=== PATIENT | male | born 1980 | race Caucasian/White ===

== ENCOUNTER → 2016-12-14 | Outpatient (CLI) | payer OTHER ==
--- NOTE | 2016-12-14 12:26 | XR ---
EXAMINATION TYPE: XR knee complete LT DATE OF EXAM: 12/14/2016 11:59 AM COMPARISON: NONE HISTORY: 35-year-old male hyperextension injury, unable to straighten, knee sprain. TECHNIQUE: 3 views FINDINGS: There are postoperative changes of ACL graft reconstruction. The lateral distal femoral Endobutton is appropriately situated and both the femoral and tibial tunnels appear within normal limits. Extensor mechanism is intact. However, there is at least a moderate underlying knee joint effusion. No acute fracture, subluxation, or dislocation. IMPRESSION: ACL graft reconstruction. No acute osseous abnormality seen. However, there is at least a moderate kn ee joint effusion. If concern for internal derangement, MRI can further evaluate.
== END | disposition home or self-care (01) ==
LOC: RADXRMAIN 11:42
PROVIDERS: ATTEND Emergency Medicine
DX: M25.462 Effusion, left knee (principal); Z98.890 Other specified postprocedural states

== ENCOUNTER → 2017-01-13 | Outpatient (CLI) | payer MEDICAID, OTHER ==
[2017-01-13 16:27] LABS: Partial Thromboplastin Time 26.2 sec (22.0-30.0); Prothrombin Time 10.2 sec (9.0-12.0)
[2017-01-13 16:31] LABS: Potassium 4.6 mmol/L (3.5-5.1)
[2017-01-13 16:38] LABS: Basophils % (A) 1 %; CH 33.4; CHCM 33.8; Eosinophils # (A) 0.3 k/uL (0-0.7); Eosinophils % (A) 5 %; HCT 43.6 % (39.0-53.0); HDW 2.36; HGB 14.4 gm/dL (13.0-17.5); Luc # (Auto) 0.13; Luc % (Auto) 2; Lymphocytes # (A) 1.8 k/uL (1.0-4.8); Lymphocytes % (A) 32 %; MCH 32.7 pg (25.0-35.0); MCHC 32.9 g/dL (31.0-37.0); MCV 99.3 fL (80.0-100.0); Mean Platelet Volume 6.5; Monocytes # (A) 0.2 k/uL (0-1.0); Monocytes % (A) 4 %; Neutrophils # (A) 3.1 k/uL (1.3-7.7); Neutrophils % (A) 56 %; RBC 4.39 m/uL (4.30-5.90); RDW 12.5 % (11.5-15.5); WBC 5.6 k/uL (3.8-10.6); WBC (Perox) 5.65
== END ==
LOC: LABPAT 15:07
PROVIDERS: ATTEND Orthopaedic Surgery
DX: Z01.812 Encounter for preprocedural laboratory examination (principal); M23.92 Unspecified internal derangement of left knee
CPT/HCPCS: 36415; 80051; 85025; 85610; 85730

== ENCOUNTER 2017-01-20 06:57 | Day surgery (SDC) | payer OTHER ==
[2017-01-18 17:07] VITALS: BMI 23.7
--- NOTE | 2017-01-19 15:07 | HP ---
DATE OF ADMISSION: CHIEF COMPLAINT: Left knee pain. 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 He stepped back off a rack and hyperextended his knee. He has had pain, swelling, and giving way since. Currently, he is partial weight-bearing with crutches. He has a history of a previous ACL reconstruction in 2011. PAST MEDICAL HISTORY: Negative. PAST SURGICAL HISTORY: Significant for previous left knee arthroscopy with ACL reconstruction. CURRENT MEDICATIONS: 1. Flexeril. 2. [place]. He denies drug allergies. FAMILY HISTORY: Significant for cancer. SOCIAL HISTORY: Significant for social alcohol use and 1/2 pack per day tobacco use. A 16-point review of systems otherwise reviewed and is noncontributory. On examination, the patient is approximately 6 foot 1, 185 pounds of mesomorphic habitus. HEENT exam is nonfocal. Neck is supple. He has painless passive motion of the left hip. Straight leg raise is negative. Active motion left knee is -8 degrees full extension to 125 degrees of flexion. He is tender about the medial joint line. He has a mild effusion. Collaterals are stable, Jason is 2+ with a soft endpoint. Pivot shift is positive. Melanie's elicits medial pain. His distal neurovascular exam appears intact in the left lower extremity. MRI report left knee 12/21/2016 shows rupture of the ACL graft along with a recurrent medial meniscal tear. IMPRESSION: Internal derangement of the left knee with medial meniscal tear/recurrent ACL rupture. RECOMMENDATIONS: I talked to the patient at length regarding his treatment options. At this point, he opts to proceed with surgery. We will plan to proceed with arthroscopic evaluation with probable partial medial meniscectomy and ACL debridement. At this point, we will not consider revision ACL reconstruction. Risks and benefits are discussed at length in layman's terms. We will likely perform that as an outpatient procedure.
[~2017-01-20 06:57] MED LIST: DEXAMETHASONE SOD PHOSPHATE 10 MG/ML 1 ML VIAL IV ONE; HYDROmorphone 1 MG/ML 1 ML SYRINGE IVP PRN; LIDOCAINE 1% 20 ML VIAL (10MG/ML) FOR IV START INTRADERMA PRN; MIDAZOLAM 2 MG/2 ML VIAL IV PRN; ONDANSETRON 4 MG/2 ML VIAL IVP ONE; SCOPOLAMINE 1.5MG/72HR PATCH TRANSDERM ONE; ceFAZolin 2 GM in SODIUM CHLORIDE 0.9% 100 ML IVPB ONE
[2017-01-20] MEDS: LACTATED RINGERS 1,000 ML IV SCH ×2 (07:33→10:35)
[2017-01-20] MEDS ORDERED: SUCCINYLCHOLINE CHLORIDE 100 MG/5 ML SYR IV ONE (07:43)
[2017-01-20] MEDS ORDERED: PROPOFOL 10 MG/ML 20 ML VIAL IV ONE (07:43)
[2017-01-20] MEDS ORDERED: MIDAZOLAM 2 MG/2 ML VIAL ONE (07:43)
[2017-01-20] MEDS ORDERED: KETOROLAC 30 MG/ML 1 ML VIAL ONE (07:43)
[2017-01-20] MEDS ORDERED: fentaNYL (PF) 50 MCG/ML 2 ML AMP ONE (07:43)
[2017-01-20] MEDS ORDERED: LIDOCAINE 1% INJ 10MG/ML (20 ML MDV) ONE (07:43)
[2017-01-20] MEDS ORDERED: EPINEPHrine (PF) 1 ML in SODIUM CHLORIDE 0.9% IRRIGATIO 3,000 ML IRRIGATION ONE ×4 (08:02)
--- NOTE | 2017-01-20 08:34 | P.OP ---
Date of Procedure: 01/20/17 Preoperative Diagnosis: Left knee internal derangement Postoperative Diagnosis: Left knee posterior medial meniscal tear/ACL rupture/reactive synovitis Procedure(s) Performed: The arthroscopic partial medial meniscectomy/ACL debridement/partial synovectomy of the medial and patellofemoral compartments Implants: Anesthesia: GETA Surgeon: Homer Peña Estimated Blood Loss (ml): 10 Pathology: none sent Condition: stable Disposition: PACU Indications for Procedure: The patient's a 36-year-old who injured himself at work recently presents with left knee pain and mechanical symptoms. He previously undergone ACL reconstruction without complication. A discussion of the risks and benefits of operative intervention was made with patient. Clinically he had evidence of rupture of his previous ACL graft. At this point after a discussion with the patient we decided not to proceed with reconstruction. Risks of the procedure to include infection, neurovascular injury, development of blood clots, possible persistence of instability need for procedures was discussed. Informed consent was obtained. Operative Findings: Posterior medial meniscal tear/ACL rupture in mid substance Description of Procedure: The patient was brought to the operating room, and after induction of general anesthesia examined the left knee. Collaterals were stable, Jason was 2+ with a soft endpoint. It appeared posterior drawer was negative. The left lower extremity was prepped and draped in normal fashion. A superior lateral portal was made through a 3 mm skin incision superior and lateral to the patella. This was used for outflow. A moderate effusion was encountered. A lateral portal was made through a 5 mm vertical skin incision lateral to the patella tendon above the joint. Diagnostic arthroscopy was performed. A medial portal made through a similar incision medial to the patellar tendon above the joint line. On inspection of the medial compartment, he is noted to have a longitudinal tear involving the posterior horn of the medial meniscus in the whitered junction. This was not amenable to repair. This debrided back to stable with straight baskets and a motorized shaver. The edges were contoured. Remaining medial meniscus was stable and intact. grade 2/3 degenerative changes involving the distal medial femoral condyle were noted. Reactive synovitis involving to medial compartment was debrided with motorized shaver. On inspection of the notch, the anterior cruciate ligament was ruptured in its mid substance. The tissue impinging on the lateral compartment was debrided with motorized shaver. The posterior cruciate ligament appeared to be intact. On inspection of the lateral compartment, no significant meniscal or articular cartilage pathology was noted. On inspection the patellofemoral articulation, there was reactive synovitis debrided with a motorized shaver. Minimal degenerative changes were noted. The gutters were clear debris. The knee was then thoroughly irrigated. The portals were closed with Steri-Strips. A sterile dressing was applied in addition to a compression stocking. The patient was awoken from general anesthesia and transferred to recovery room in good condition. Blood loss was estimated at 10 mL. No complications were incurred.
[2017-01-20 08:55] VITALS: TEMP 97.6
[2017-01-20] MEDS ORDERED: HYDROcodone/APAP 5-325MG 1 EACH TAB PO ONE (09:52)
[2017-01-20 10:49] VITALS: BP 122/68; PULSE 87; RESP 166
== END 2017-01-20 11:04 | disposition home or self-care (01) ==
LOC: OR 06:57
PROVIDERS: ATTEND Orthopaedic Surgery
DX: S83.282A Other tear of lateral meniscus, current injury, left knee, initial encounter (principal); S83.512A Sprain of anterior cruciate ligament of left knee, initial encounter; M65.9 Synovitis and tenosynovitis, unspecified; F17.200 Nicotine dependence, unspecified, uncomplicated; X58.XXXA Exposure to other specified factors, initial encounter; Z79.891 Long term (current) use of opiate analgesic; Z79.899 Other long term (current) drug therapy
CPT/HCPCS: 29881; 29876; J2250; J1100; J0690; J2405; J0171; J2001; J3010; J1885; J0330; J2704

== ENCOUNTER → 2017-12-25 | Outpatient (CLI) | payer BC ==
--- NOTE | 2017-12-25 11:35 | US ---
EXAMINATION TYPE: US kidneys/renal and bladder DATE OF EXAM: 12/25/2017 COMPARISON: NONE CLINICAL HISTORY: R39.15 urgency of urination; microscopic hematuria per patient EXAM MEASUREMENTS: Right Kidney: 11.4 x 6.2 x 4.9 cm Left Kidney: 10.6 x 5.3 x 5.1 cm Post Void Residual Volume: 3.5 mL Right Kidney: No hydronephrosis or masses seen Left Kidney: No hydronephrosis or masses seen Bladder: wnl Bilateral Jets seen: yes Normal Post Void Residual: Yes There is no evidence for hydronephrosis at this point in time. No nephrolithiasis is seen. No ade s are identified. Cortical medullary differentiation is maintained bilaterally. The urinary bladder i s anechoic. Bilateral ureteral jets are seen. IMPRESSION: No significant post void residual volume.
== END | disposition home or self-care (01) ==
LOC: RADUSWWP 10:43
PROVIDERS: ATTEND Family Medicine
DX: R39.15 Urgency of urination (principal)
CPT/HCPCS: 76770

== ENCOUNTER 2018-01-13 21:13 | Observation (INO) | payer BC ==
[2018-01-13] MEDS ORDERED: ONDANSETRON 4 MG/2 ML VIAL IVP STA (21:48)
[2018-01-13] MEDS ORDERED: MORPHINE SULFATE 2 MG/ML SYRINGE IVP STA ×2 (21:48→22:59)
[2018-01-13] MEDS ORDERED: SODIUM CHLORIDE 0.9% 1,000 ML IV ONE ×2 (21:50→23:45)
[2018-01-13 22:00] LABS: Basophils % (A) 0 %; Eosinophils # (A) 0.2 k/uL (0-0.7); Eosinophils % (A) 2 %; HCT 44.7 % (39.0-53.0); HGB 15.7 gm/dL (13.0-17.5); Lymphocytes # (A) 1.4 k/uL (1.0-4.8); Lymphocytes % (A) 11 %; MCH 32.8 pg (25.0-35.0); MCHC 35.2 g/dL (31.0-37.0); Mean Platelet Volume 6.2; Monocytes # (A) 0.5 k/uL (0-1.0); Monocytes % (A) 4 %; Neutrophils # (A) 11.5 k/uL (1.3-7.7); Neutrophils % (A) 84 %; Platelet Count 338 k/uL (150-450); RDW 11.9 % (11.5-15.5); WBC 13.7 k/uL (3.8-10.6)
[2018-01-13 22:14] LABS: ALT 55 U/L (21-72); AST 32 U/L (17-59); Alkaline Phosphatase 68 U/L (38-126); Amylase 60 U/L (30-110); Anion Gap 18 mmol/L; Blood Urea Nitrogen 13 mg/dL (9-20); Calcium 9.8 mg/dL (8.4-10.2); Carbon Dioxide 24 mmol/L (22-30); Chloride 99 mmol/L (98-107); Glucose 126 mg/dL (74-99); Lipase 100 U/L (23-300); Potassium 4.5 mmol/L (3.5-5.1); Sodium 141 mmol/L (137-145); Total Bilirubin 0.5 mg/dL (0.2-1.3)
--- NOTE | 2018-01-13 23:24 | CT ---
EXAM: CT Abdomen and Pelvis With Intravenous Contrast CLINICAL HISTORY: Abdominal pain. Right lower quadrant pain. TECHNIQUE: Axial computed tomography images of the abdomen and pelvis with intravenous contrast. Coronal and sagittal reformatted images were created and reviewed. Delayed axial images of the abdomen were obtained. CTDI is 10.20, 8.70 mGy and DLP is 836.50 mGy-cm. This CT exam was performed using one or more of the following dose reduction techniques: automated exposure control, adjustment of the mA and/or kV according to patient size, and/or use of iterative reconstruction technique. CONTRAST: 100 mL of Isovue 300 administered intravenously. COMPARISON: No relevant prior studies available. FINDINGS: Lung bases: Unremarkable as visualized. No mass. No consolidation. ABDOMEN: Liver: Subtle hypodense 1.3 cm lesion at the dome of the liver, nonspecific. This lesion is slightly less conspicuous on delayed images which could indicate hemangioma although not definitive. Liver otherwise unremarkable. Gallbladder and bile ducts: Unremarkable. No radiopaque calculi. No biliary ductal dilation. Pancreas: Unremarkable. No ductal dilation. No mass. No adjacent inflammatory changes. Spleen: Unremarkable. No splenomegaly. Adrenals: Unremarkable. No mass. Kidneys and ureters: Unremarkable. No hydronephrosis or ureteral calculus. No solid mass. Stomach and bowel: No bowel obstruction or bowel wall thickening. PELVIS: Appendix: Density is present in the proximal appendix which may represent appendicolith or inspissated secretions. Appendix measures up to approximately 10 mm in diameter. No adjacent inflammatory changes or periappendiceal fluid. Bladder: Unremarkable. No mass or wall thickening. Reproductive: Unremarkable as visualized. ABDOMEN and PELVIS: Intraperitoneal space: Unremarkable. No free air. No ascites or significant fluid collection. Bones/joints: No acute fracture. No dislocation. Soft tissues: Tiny fat-containing umbilical hernia.. Vasculature: Unremarkable. No abdominal aortic aneurysm. Lymph nodes: Unremarkable. No enlarged lymph nodes. IMPRESSION: 1. Enlarged appendix measuring up to 10 mm in diameter with density in the proximal appendix which may represent appendicolith or inspissated secretions. No adjacent inflammatory changes or periappendiceal fluid. However, early appendicitis is not excluded. Correlate clinically. 2. No bowel obstruction, bowel wall thickening, free fluid or free air. 3. Subtle hypodense 1.3 cm lesion at the dome of the liver which is slightly less conspicuous on delayed images. Findings may represent hemangioma. Nonemergent ultrasound can be obtained to further characterize. Liver otherwise unremarkable. [employer] 01/13/18 23:31 Verify Receipt Verified receipt with Dr. Valadez on 01/13 23:31 (-04:00)
[2018-01-13] MEDS ORDERED: diphenhydrAMINE 50 MG/ML 1 ML VIAL IVP STA (23:37)
--- NOTE | 2018-01-13 23:53 | ED ---
Abdominal Pain HPI - General Chief Complaint: Abdominal Pain Stated Complaint: RLQ Pain Time Seen by Provider: 01/13/18 21:41 Source: patient Mode of arrival: ambulatory Limitations: no limitations - History of Present Illness Initial Comments: 37-year-old male patient presents to emergency department today for complaints of right lower quadrant abdominal pain that started around 4 PM this afternoon. Patient states that the pain is sharp and stabbing in nature. States it is constant. Patient states that any type of movement makes it worse especially when he was riding in the car and hitting bumps. Patient states he has been nauseated but has not vomited. States he has been having chills but denies any fevers. Denies any history of surgery on his abdomen. Denies any constipation , diarrhea, hematuria, dysuria, urinary frequency, urinary urgency. Denies any radiation of the pain into his back, groin, or testicles.Patient denies any recent rash, fever, chills, shortness breath, chest pain, abdominal pain, nausea , vomiting, diarrhea, constipation, back pain, numbness, tingling, dizziness, weakness, hematuria, dysuria, urinary urgency, urinary frequency, headache, visual changes, or any other complaints. - Related Data Home Medications Medication Instructions Recorded Confirmed Hydrocodone/Acetaminophen [[place] 1 tab PO BID PRN 01/18/17 01/18/17 5-325] Ibuprofen [Motrin] 600 mg PO Q8HR PRN 01/18/17 01/18/17 Previous Rx's Medication Instructions Recorded Hydrocodone/Acetaminophen [[place] 1 each PO Q3-4H PRN #40 tablet 01/20/17 5-325 Tablet] Allergies Allergy/AdvReac Type Severity Reaction Status Date / Time No Known Allergies Allergy Verified 01/13/18 21:37 Review of Systems ROS Statement: Those systems with pertinent positive or pertinent negative responses have been documented in the HPI. ROS Other: All systems not noted in ROS Statement are negative. Past Medical History Past Medical History: No Reported History Additional Past Medical History / Comment(s): has knee brace History of Any Multi-Drug Resistant Organisms: None Reported Past Surgical History: Back Surgery, Orthopedic Surgery Additional Past Surgical History / Comment(s): left knee arthroscopy, ACL left knee Past Anesthesia/Blood Transfusion Reactions: No Reported Reaction Past Psychological History: No Psychological Hx Reported Smoking Status: Former smoker Past Alcohol Use History: Daily Past Drug Use History: None Reported - Past Family History Mother Family Medical History: Cancer General Exam Limitations: no limitations General appearance: alert, in no apparent distress, other (This is a well- developed, well-nourished adult male patient in no acute distress. Vital signs upon presentation are temperature 97.0F, pulse 86, respirations 18, blood pressure 155/91, pulse ox 98% on room air.) Head exam: Present: atraumatic, normocephalic, normal inspection Eye exam: Present: normal appearance, PERRL, EOMI. Absent: scleral icterus, conjunctival injection, periorbital swelling ENT exam: Present: normal exam, normal oropharynx, mucous membranes moist Neck exam: Present: normal inspection. Absent: tenderness, meningismus, lymphadenopathy Respiratory exam: Present: normal lung sounds bilaterally. Absent: respiratory distress, wheezes, rales, rhonchi, stridor Cardiovascular Exam: Present: regular rate, normal rhythm, normal heart sounds. Absent: systolic murmur, diastolic murmur, rubs, gallop, clicks GI/Abdominal exam: Present: soft, tenderness (Right lower quadrant tenderness at McBurney's point.), normal bowel sounds. Absent: distended, guarding, rebound, rigid Back exam: Present: normal inspection. Absent: CVA tenderness (R), CVA tenderness (L) Neurological exam: Present: alert, oriented X3, CN II-XII intact Psychiatric exam: Present: normal affect, normal mood Skin exam: Present: warm, dry, intact, normal color. Absent: rash Course Vital Signs 01/13/18 01/13/18 01/13/18 21:34 22:59 23:58 Temperature 97.0 F L 98.9 F 99.8 F H Pulse Rate 86 95 94 Respiratory 18 18 16 Rate Blood Pressure 155/91 152/85 148/89 O2 Sat by Pulse 98 97 99 Oximetry Medical Decision Making - Medical Decision Making 37-year-old male patient presented to the emergency department today for evaluation of right lower quadrant abdominal pain. Physical examination did reveal tenderness at McBurney's point. Patient had no peritoneal signs. Patient was afebrile initially. He had not had any vomiting. Labs reviewed and did show an elevated white blood cell count at 13.7. CT of the abdomen and pelvis with contrast was obtained and did show an enlarged appendix measuring 10 mm with no surrounding inflammatory changes. Given patient's symptoms and findings on CT we do feel he has an early appendicitis. My attending Dr. Valadez did discuss the case with the surgeon stone spreader operator Dr. Hobbs. She accepts admission. We'll start Zosyn. - Lab Data Result diagrams: 01/13/18 21:47 01/13/18 21:47 Lab Results 01/13/18 01/13/18 01/13/18 Range/Units 21:47 21:47 21:47 WBC 13.7 H (3.8-10.6) k/uL RBC 4.80 (4.30-5.90) m/uL Hgb 15.7 (13.0-17.5) gm/dL Hct 44.7 (39.0-53.0) % MCV 93.0 (80.0-100.0) fL MCH 32.8 (25.0-35.0) pg MCHC 35.2 (31.0-37.0) g/dL RDW 11.9 (11.5-15.5) % Plt Count 338 (150-450) k/uL Neutrophils % 84 % Lymphocytes % 11 % Monocytes % 4 % Eosinophils % 2 % Basophils % 0 % Neutrophils # 11.5 H (1.3-7.7) k/uL Lymphocytes # 1.4 (1.0-4.8) k/uL Monocytes # 0.5 (0-1.0) k/uL Eosinophils # 0.2 (0-0.7) k/uL Basophils # 0.0 (0-0.2) k/uL Sodium 141 (137-145) mmol/L Potassium 4.5 (3.5-5.1) mmol/L Chloride 99 (98-107) mmol/L Carbon Dioxide 24 (22-30) mmol/L Anion Gap 18 mmol/L BUN 13 (9-20) mg/dL Creatinine 0.80 (0.66-1.25) mg/dL Est GFR (CKD-EPI)AfAm >90 (>60 ml/min/1.73 sqM) Est GFR (CKD-EPI)NonAf >90 (>60 ml/min/1.73 sqM) Glucose 126 H (74-99) mg/dL Plasma Lactic Acid Nayan 1.7 (0.7-2.0) mmol/L Calcium 9.8 (8.4-10.2) mg/dL Total Bilirubin 0.5 (0.2-1.3) mg/dL AST 32 (17-59) U/L ALT 55 (21-72) U/L Alkaline Phosphatase 68 (38-126) U/L Total Protein 8.0 (6.3-8.2) g/dL Albumin 5.0 (3.5-5.0) g/dL Amylase 60 (30-110) U/L Lipase 100 (23-300) U/L - Radiology Data Radiology results: report reviewed, image reviewed CT of the abdomen and pelvis was obtained with contrast. Report was reviewed in its entirety. Impression by Dr. Jose shows enlarged appendix measuring up to 10 mm in diameter with density in the proximal appendix which may represent appendicolith or inspissated secretions. No adjacent inflammatory changes or periappendiceal fluid. However early appendicitis is not excluded. Correlate clinically. No bowel obstruction, bowel wall thickening, free fluid or free air. Subtle hypodense 1.3 centimeter lesion at the dome of the liver which is slightly less conspicuous on delayed images. Findings may represent hemangioma. Nonemergent ultrasound can be obtained to further characterize. Liver otherwise unremarkable. Disposition Clinical Impression: Appendicitis Disposition: ADMITTED IP TO THIS [facility] Condition: Serious Referrals: Rico Cruz MD [Primary Care Provider] - 1-2 days Decision to Admit Reason: Admit from EC Decision Date: 01/14/18 Decision Time: 00:05
[2018-01-13] MEDS ORDERED: ACETAMINOPHEN TAB 500 MG TAB PO STA (23:55)
[2018-01-14 00:06] LABS: Appearance,Urine Clear (Clear); Bilirubin,Urine Negative (Negative); Blood,Urine Negative (Negative); Color,Urine Light Yellow; Glucose,Urine (UA) Negative (Negative); Ketones,Urine Trace (Negative); Leukocyte Esterase,Urine Negative (Negative); Nitrite,Urine Negative (Negative); Protein,Urine Negative (Negative); Specific Gravity,Urine 1.042 (1.001-1.035); Urobilinogen,Urine <2.0 mg/dL (<2.0)
--- NOTE | 2018-01-14 00:09 | ED ---
General Adult HPI - General Chief complaint: Abdominal Pain Stated complaint: RLQ Pain Time Seen by Provider: 01/13/18 21:41 Source: patient Mode of arrival: ambulatory Limitations: no limitations - Related Data Home Medications Medication Instructions Recorded Confirmed Hydrocodone/Acetaminophen [[place] 1 tab PO BID PRN 01/18/17 01/18/17 5-325] Ibuprofen [Motrin] 600 mg PO Q8HR PRN 01/18/17 01/18/17 Previous Rx's Medication Instructions Recorded Hydrocodone/Acetaminophen [[place] 1 each PO Q3-4H PRN #40 tablet 01/20/17 5-325 Tablet] Allergies Allergy/AdvReac Type Severity Reaction Status Date / Time No Known Allergies Allergy Verified 01/13/18 21:37 Review of Systems ROS Statement: Those systems with pertinent positive or pertinent negative responses have been documented in the HPI. ROS Other: All systems not noted in ROS Statement are negative. Past Medical History Past Medical History: No Reported History Additional Past Medical History / Comment(s): has knee brace History of Any Multi-Drug Resistant Organisms: None Reported Past Surgical History: Back Surgery, Orthopedic Surgery Additional Past Surgical History / Comment(s): left knee arthroscopy, ACL left knee Past Anesthesia/Blood Transfusion Reactions: No Reported Reaction Past Psychological History: No Psychological Hx Reported Smoking Status: Former smoker Past Alcohol Use History: Daily Past Drug Use History: None Reported - Past Family History Mother Family Medical History: Cancer General Exam Limitations: no limitations Course Vital Signs 01/13/18 01/13/18 01/13/18 21:34 22:59 23:58 Temperature 97.0 F L 98.9 F 99.8 F H Pulse Rate 86 95 94 Respiratory 18 18 16 Rate Blood Pressure 155/91 152/85 148/89 O2 Sat by Pulse 98 97 99 Oximetry Medical Decision Making - Medical Decision Making Medical decision making; this is a 37-year-old male here with his significant other. The patient starting having pain toward the right lower quadrant around 3 PM today. That is also when he last ate . Nausea no vomiting. In the emergency room the patient's examination finds pain with referred pain, rebound and guarding to the right lower quadrant. Nausea again without vomiting. The patient had a CAT scan which showed ;density is present in the proximal appendix which may represent appendicolith or inspissated secretions. The appendix measures approximately 10 mm in diameter. No adjacent inflammatory changes or periappendiceal fluid is noted. This is reported by Dr. Jose, stat rad. The patient's white count 13.7 hemoglobin 15 hematocrit of 44 with a potassium 4.5. BUN 13 creatinine 0.8 GFR greater than 90. Glucose 126. Amylase lipase normal limits. The patient received pain medication in the emergency room the form of morphine. the patient may have had an ALLERGIC reaction to it with reddened skin, no shortness of breath or hives. The patient received Benadryl 50. The patient is being hydrated. The case discussed with on-call general surgeon Dr. Jones. She wants the patient admitted to her service, kept nothing by mouth continue with hydration started on Zosyn . Dr Valadez - Lab Data Result diagrams: 01/13/18 21:47 01/13/18 21:47 Lab Results 01/13/18 01/13/18 01/13/18 Range/Units 21:47 21:47 21:47 WBC 13.7 H (3.8-10.6) k/uL RBC 4.80 (4.30-5.90) m/uL Hgb 15.7 (13.0-17.5) gm/dL Hct 44.7 (39.0-53.0) % MCV 93.0 (80.0-100.0) fL MCH 32.8 (25.0-35.0) pg MCHC 35.2 (31.0-37.0) g/dL RDW 11.9 (11.5-15.5) % Plt Count 338 (150-450) k/uL Neutrophils % 84 % Lymphocytes % 11 % Monocytes % 4 % Eosinophils % 2 % Basophils % 0 % Neutrophils # 11.5 H (1.3-7.7) k/uL Lymphocytes # 1.4 (1.0-4.8) k/uL Monocytes # 0.5 (0-1.0) k/uL Eosinophils # 0.2 (0-0.7) k/uL Basophils # 0.0 (0-0.2) k/uL Sodium 141 (137-145) mmol/L Potassium 4.5 (3.5-5.1) mmol/L Chloride 99 (98-107) mmol/L Carbon Dioxide 24 (22-30) mmol/L Anion Gap 18 mmol/L BUN 13 (9-20) mg/dL Creatinine 0.80 (0.66-1.25) mg/dL Est GFR (CKD-EPI)AfAm >90 (>60 ml/min/1.73 sqM) Est GFR (CKD-EPI)NonAf >90 (>60 ml/min/1.73 sqM) Glucose 126 H (74-99) mg/dL Plasma Lactic Acid Nayan 1.7 (0.7-2.0) mmol/L Calcium 9.8 (8.4-10.2) mg/dL Total Bilirubin 0.5 (0.2-1.3) mg/dL AST 32 (17-59) U/L ALT 55 (21-72) U/L Alkaline Phosphatase 68 (38-126) U/L Total Protein 8.0 (6.3-8.2) g/dL Albumin 5.0 (3.5-5.0) g/dL Amylase 60 (30-110) U/L Lipase 100 (23-300) U/L Urine Color Urine Appearance (Clear) Urine pH (5.0-8.0) Ur Specific [place] (1.001-1.035) Urine Protein (Negative) Urine Glucose (UA) (Negative) Urine Ketones (Negative) Urine Blood (Negative) Urine Nitrite (Negative) Urine Bilirubin (Negative) Urine Urobilinogen (<2.0) mg/dL Ur Leukocyte Esterase (Negative) 01/13/18 Range/Units 23:50 WBC (3.8-10.6) k/uL RBC (4.30-5.90) m/uL Hgb (13.0-17.5) gm/dL Hct (39.0-53.0) % MCV (80.0-100.0) fL MCH (25.0-35.0) pg MCHC (31.0-37.0) g/dL RDW (11.5-15.5) % Plt Count (150-450) k/uL Neutrophils % % Lymphocytes % % Monocytes % % Eosinophils % % Basophils % % Neutrophils # (1.3-7.7) k/uL Lymphocytes # (1.0-4.8) k/uL Monocytes # (0-1.0) k/uL Eosinophils # (0-0.7) k/uL Basophils # (0-0.2) k/uL Sodium (137-145) mmol/L Potassium (3.5-5.1) mmol/L Chloride (98-107) mmol/L Carbon Dioxide (22-30) mmol/L Anion Gap mmol/L BUN (9-20) mg/dL Creatinine (0.66-1.25) mg/dL Est GFR (CKD-EPI)AfAm (>60 ml/min/1.73 sqM) Est GFR (CKD-EPI)NonAf (>60 ml/min/1.73 sqM) Glucose (74-99) mg/dL Plasma Lactic Acid Nayan (0.7-2.0) mmol/L Calcium (8.4-10.2) mg/dL Total Bilirubin (0.2-1.3) mg/dL AST (17-59) U/L ALT (21-72) U/L Alkaline Phosphatase (38-126) U/L Total Protein (6.3-8.2) g/dL Albumin (3.5-5.0) g/dL Amylase (30-110) U/L Lipase (23-300) U/L Urine Color Light Yellow Urine Appearance Clear (Clear) Urine pH 6.0 (5.0-8.0) Ur Specific [place] 1.042 H (1.001-1.035) Urine Protein Negative (Negative) Urine Glucose (UA) Negative (Negative) Urine Ketones Trace H (Negative) Urine Blood Negative (Negative) Urine Nitrite Negative (Negative) Urine Bilirubin Negative (Negative) Urine Urobilinogen <2.0 (<2.0) mg/dL Ur Leukocyte Esterase Negative (Negative) Disposition Clinical Impression: Appendicitis Disposition: ADMITTED IP TO THIS HOSP Condition: Serious
[2018-01-14] MEDS ORDERED: ACETAMINOPHEN TAB 325 MG TAB PO PRN (00:11)
[2018-01-14] MEDS ORDERED: NALOXONE 0.4 MG/ML 1 ML VIAL IV PRN ×2 (00:11→10:30)
[2018-01-14] MEDS ORDERED: PIPERACILLIN-TAZOBACTAM 3.375 GM in DEXTROSE/WATER 1 50ML.BAG IVPB STA (00:13)
[2018-01-14] MEDS ORDERED: diphenhydrAMINE 50 MG/ML 1 ML VIAL IVP PRN (00:13)
[2018-01-14] MEDS: SODIUM CHLORIDE 0.9% 1,000 ML IV SCH ×2 (00:49→13:23)
[2018-01-14] MEDS: KETOROLAC 30 MG/ML 1 ML VIAL IVP PRN ×3 (02:05→13:25)
[2018-01-14] MEDS ORDERED: ceFAZolin IN SWFI 2 GM/20 ML SYRINGE IVP ONE (07:54)
--- NOTE | 2018-01-14 07:58 | P.GSHP ---
History of Present Illness H&P Date: 01/14/18 CHIEF COMPLAINT: Right lower quadrant abdominal pain with appendicitis for over 1 day. HISTORY OF PRESENT ILLNESS: The patient is a previously healthy 37-year-old male who presents with over 1 history of periumbilical with right lower quadrant abdominal pain that started early yesterday morning. He denies any previous episodes. No reports of diarrhea. No reports of prior abdominal pain. He states the intensity of the pain is moderate to severe. He presented with over 13,[address] abdomen and pelvis consistent with dilated appendix suspicious for appendicitis. PAST MEDICAL HISTORY: Denies PAST SURGICAL HISTORY: See list CURRENT MEDICATIONS: Denies ALLERGIES: Denies SOCIAL HISTORY: No active tobacco user. FAMILY HISTORY: Denies Crohns disease and ulcerative colitis. REVIEW OF ORGAN SYSTEMS: CONSTITUTIONAL: Denies any fever or chills. HEENT: Denies any trouble with vision, hearing or nosebleeds. No difficulty swallowing. LYMPHATIC: The patient denies any lumps and bumps around the neck. ENDOCRINE: Denies any thyroid disorders. Denies any blood sugar glucose intolerance. RESPIRATORY: Denies shortness of breath including chronic cough. CARDIOVASCULAR: Denies history of chest pain with exertion. GASTROINTESTINAL: Denies regurgitation of bile at night as well as intermittent nausea. No blood in stools. GENITOURINARY: Previous blood in urine. Has increased urinary urgency and frequency. MUSCULOSKELETAL: Has intermittent back pain and joint arthritis. NEUROLOGIC: Denies any numbness or tingling along the distal extremities. No seizure disorders or headaches. PSYCHIATRIC: Denies any depression or suicidal ideation. HEMATOLOGIC: Denies any abnormal bleeding or bruising. GENERAL MEDICAL CARE: The patient sees primary care physician regularly. PHYSICAL EXAMINATION: Vital signs: Vital Signs Temp 98.9 F 01/14/18 06:15 Pulse 96 01/14/18 06:15 Resp 16 01/14/18 06:15 BP 124/69 01/14/18 06:15 Pulse Ox 96 01/14/18 06:15 Intake & Output 01/13/18 01/14/18 01/14/18 18:59 06:59 18:59 Intake Total 250 Balance 250 Weight 90.718 kg Intake: Intake, IV Titration 250 Amount Piperacillin-Tazobactam 3 200 .375 gm In Dextrose/Water 1 50ml.bag @ 12.5 mls/hr IVPB ONCE STA Rx#: [id number] Piperacillin-Tazobactam 3 50 .375 gm In Dextrose/Water 1 50ml.bag @ 12.5 mls/hr IVPB Q8HR [facility] Rx#: [id number] Other: Voiding Method Toilet # Voids 2 GENERAL: Well developed and in no acute distress. HEENT: No sclera icterus. Extraocular movements grossly intact. Moist buccal mucosa. Head is atraumatic, normocephalic. Hears conversational speech. No nasal drainage. NECK: Supple without lymphadenopathy. No JV distention. CHEST: Non-labored respirations and equal bilateral excursions. CARDIOVASCULAR: Regular rate and rhythm. Palpable 2+ radial pulses. ABDOMEN: Soft, tender at the right lower quadrant. MUSCULOSKELETAL: No clubbing, cyanosis or edema. NEUROLOGIC: No focal or lateralizing signs. PSYCH: Appropriate affect. Alert and oriented to person, place and time. SKIN: Well perfused. Good skin turgor. LABS: WBC 13+ k STUDIES: CT of the abdomen and pelvis reviewed with findings consistent with appendicitis. ASSESSMENT: 1. Right lower quadrant pain. 2. Appendicitis. 3. Leukocytosis. PLAN: 1. I have discussed benefits and risks of laparoscopic appendectomy. 2. Antibiotics, zosyn 3. GI prophylaxis. Thank you very much for allowing me to participate in the care of your patient. Past Medical History Past Medical History: No Reported History Additional Past Medical History / Comment(s): has knee brace History of Any Multi-Drug Resistant Organisms: None Reported Past Surgical History: Back Surgery, Orthopedic Surgery Additional Past Surgical History / Comment(s): left knee arthroscopy, ACL left knee Past Anesthesia/Blood Transfusion Reactions: No Reported Reaction Past Psychological History: No Psychological Hx Reported Smoking Status: Former smoker Past Alcohol Use History: Daily Past Drug Use History: None Reported - Past Family History Mother Family Medical History: Cancer Medications and Allergies Allergies Allergy/AdvReac Type Severity Reaction Status Date / Time No Known Allergies Allergy Verified 01/13/18 21:37 Surgical - Exam Vital Signs Temp Pulse Resp BP Pulse Ox 97.0 F L 86 18 155/91 98 01/13/18 21:34 01/13/18 21:34 01/13/18 21:34 01/13/18 21:34 01/13/18 21:34 Results - Labs 01/13/18 21:47 01/13/18 21:47 Abnormal Lab Results - Last 24 Hours (Table) 01/13/18 01/13/18 01/13/18 Range/Units 21:47 21:47 23:50 WBC 13.7 H (3.8-10.6) k/uL Neutrophils # 11.5 H (1.3-7.7) k/uL Glucose 126 H (74-99) mg/dL Ur Specific Snelling 1.042 H (1.001-1.035) Urine Ketones Trace H (Negative) Diabetes panel 01/13/18 Range/Units 21:47 Sodium 141 (137-145) mmol/L Potassium 4.5 (3.5-5.1) mmol/L Chloride 99 (98-107) mmol/L Carbon Dioxide 24 (22-30) mmol/L BUN 13 (9-20) mg/dL Creatinine 0.80 (0.66-1.25) mg/dL Glucose 126 H (74-99) mg/dL Calcium 9.8 (8.4-10.2) mg/dL AST 32 (17-59) U/L ALT 55 (21-72) U/L Alkaline Phosphatase 68 (38-126) U/L Total Protein 8.0 (6.3-8.2) g/dL Albumin 5.0 (3.5-5.0) g/dL Calcium panel 01/13/18 Range/Units 21:47 Calcium 9.8 (8.4-10.2) mg/dL Albumin 5.0 (3.5-5.0) g/dL Pituitary panel 01/13/18 Range/Units 21:47 Sodium 141 (137-145) mmol/L Potassium 4.5 (3.5-5.1) mmol/L Chloride 99 (98-107) mmol/L Carbon Dioxide 24 (22-30) mmol/L BUN 13 (9-20) mg/dL Creatinine 0.80 (0.66-1.25) mg/dL Glucose 126 H (74-99) mg/dL Calcium 9.8 (8.4-10.2) mg/dL Adrenal panel 01/13/18 Range/Units 21:47 Sodium 141 (137-145) mmol/L Potassium 4.5 (3.5-5.1) mmol/L Chloride 99 (98-107) mmol/L Carbon Dioxide 24 (22-30) mmol/L BUN 13 (9-20) mg/dL Creatinine 0.80 (0.66-1.25) mg/dL Glucose 126 H (74-99) mg/dL Calcium 9.8 (8.4-10.2) mg/dL Total Bilirubin 0.5 (0.2-1.3) mg/dL AST 32 (17-59) U/L ALT 55 (21-72) U/L Alkaline Phosphatase 68 (38-126) U/L Total Protein 8.0 (6.3-8.2) g/dL Albumin 5.0 (3.5-5.0) g/dL
[2018-01-14] MEDS ORDERED: PIPERACILLIN-TAZOBACTAM 3.375 GM in DEXTROSE/WATER 1 50ML.BAG IVPB SCH (08:00)
[2018-01-14] MEDS ORDERED: HEPARIN SODIUM,PORCINE 5,000 UNIT/ML 1 ML VIAL SQ STA (08:02)
[2018-01-14] MEDS ORDERED: MIDAZOLAM 2 MG/2 ML VIAL IV PRN (09:24)
[2018-01-14] MEDS ORDERED: fentaNYL (PF) 50 MCG/ML 2 ML AMP IV PRN (09:24)
[2018-01-14] MEDS ORDERED: LACTATED RINGERS 1,000 ML IV SCH (09:30)
[2018-01-14] MEDS ORDERED: NEOSTIGMINE 1 MG/ML 10 ML VIAL ONE (09:33)
[2018-01-14] MEDS ORDERED: HYDROmorphone (PF) 1 MG/ML ONE (09:33)
[2018-01-14] MEDS ORDERED: HEPARIN SODIUM,PORCINE 5,000 UNIT/ML 1 ML VIAL ONE (09:33)
[2018-01-14] MEDS ORDERED: ONDANSETRON 4 MG/2 ML VIAL ONE (09:33)
[2018-01-14] MEDS ORDERED: SUCCINYLCHOLINE CHLORIDE 100 MG/5 ML SYR IV ONE (09:33)
[2018-01-14] MEDS ORDERED: PROPOFOL 10 MG/ML 20 ML VIAL IV ONE (09:33)
[2018-01-14] MEDS ORDERED: MIDAZOLAM 2 MG/2 ML VIAL ONE (09:33)
[2018-01-14] MEDS ORDERED: DEXAMETHASONE SOD PHOS (MDV) 100 MG/10 ML VIAL ONE (09:33)
[2018-01-14] MEDS ORDERED: KETOROLAC 30 MG/ML 1 ML VIAL ONE (09:33)
[2018-01-14] MEDS ORDERED: LIDOCAINE 1% INJ 10MG/ML (20 ML MDV) ONE (09:33)
[2018-01-14] MEDS ORDERED: GLYCOPYRROLATE 0.2 MG/ML 2 ML VIAL ONE (09:33)
[2018-01-14] MEDS ORDERED: fentaNYL (PF) 50 MCG/ML 2 ML AMP ONE (09:33)
[2018-01-14] MEDS ORDERED: SODIUM CHLORIDE 0.9% 50 ML with ceFAZolin 2,000 MG IV ONE ×2 (09:45)
[2018-01-14] MEDS ORDERED: BUPIVACAINE (PF) 0.5% 30 ML VIAL SQ ONE (09:53)
[2018-01-14] MEDS ORDERED: IV FLUID CONTINUATION 400 ML IV ONE ×2 (10:00)
[2018-01-14] MEDS ORDERED: LACTATED RINGERS 1,000 ML IV ONE ×2 (10:09)
--- NOTE | 2018-01-14 10:25 | P.OP ---
Date of Procedure: 01/14/18 Description of Procedure: SURGEON: CHELA ZACARIAS MD MICROBIOLOGY LAB MANAGER: None. PREOPERATIVE DIAGNOSES: 1. Right lower quadrant abdominal pain. 2. Acute appendicitis. 3. Leukocytosis. POSTOPERATIVE DIAGNOSES: 1. Right lower quadrant abdominal pain. 2. Acute appendicitis. 3. Leukocytosis. 4. Acute appendicitis with periappendicitis, without rupture. 5. Fatty liver disease PROCEDURES PERFORMED: 1. Diagnostic laparoscopy. 2. Laparoscopic appendectomy. ANESTHESIA: General with local ESTIMATED BLOOD LOSS: 5 mL. SPECIMENS REMOVED: Appendix. COMPLICATIONS: None. OPERATIVE FINDINGS: 1. Acute appendicitis with dilated appendix and periappendicitis without rupture. 2. Unremarkable small bowel and terminal ileum. 3. Fatty liver disease 4. The colon was unremarkable 5. No inguinal hernias. INDICATIONS: The patient is a 37-year-old male who presents with over 24-hour history of right lower quadrant abdominal pain. He had studies consistent with with acute appendicitis. Benefits and risks, including possibility of open technique were described at length. Informed consent was obtained. DESCRIPTION OR PROCEDURE: Patient was brought to the operating room, laid in supine position. After general induction, the abdomen was prepped and draped in standard sterile fashion. Prior to incision, a timeout protocol was confirmed with surgical team regarding patient's name including procedure to be performed. Preoperative medications were given intraoperatively. Additionally, bilateral SCDs were placed. A left upper quadrant incision was made after localizing the skin with anesthetic. A 0 degree 5 mm laparoscopic trocar entry was performed and entered into the peritoneal cavity. The abdomen was insufflated to 15 mmHg of pressure, which he tolerated well. Diagnostic laparoscopy demonstrated no injury to bowel, viscera or mesentery. The liver was enlarged with features of fatty liver disease. A 5 mm port was placed just above the pubis. A separate 12 mm port was placed at the left lateral abdominal wall under direct visualization. The patient was placed in Trendelenburg position with the right side up. A systematic view within the abdominal cavity was started with the small bowel which was unremarkable. The base of the cecum was without inflammation. The entire appendix was dilated consistent with acute appendicitis including periappendicitis. A 60 mm Endo TAWANDA echelon stapler was fired using a honeycutt vascular load. A staple load was used for complete division of the base of the appendix. The staple line was completely hemostatic. The specimen was removed from the abdominal cavity with a Endo Catch bag through the 12 mm trocar. All instruments and pneumoperitoneum were evacuated from the abdominal cavity. A total of 30 mL of local anesthetic was infiltrated in all wounds for postop analgesia. Liquid glue was applied to the skin after reapproximating the incisions with 4-0 Monocryl as described. At the end of the procedure, needle, sponge, and instrument count was verified correct by electrical equipment technician. The patient had tolerated the procedure well, was taken to the postanesthesia care unit in stable condition. Intraoperative abdominal films were reviewed with the patient's family who were pleased with the level of care.
[2018-01-14] MEDS ORDERED: PROMETHAZINE 25 MG TAB PO PRN (10:30)
[2018-01-14] MEDS ORDERED: ONDANSETRON 4 MG/2 ML VIAL IVP PRN (10:30)
[2018-01-14] MEDS: MORPHINE SULFATE 2 MG/ML SYRINGE IV PRN ×2 (10:37→10:42)
[2018-01-14 11:11] VITALS: RESP 14; TEMP 98.2
[2018-01-14] MEDS ORDERED: TAMSULOSIN 0.4 MG CAP.ER.24H PO SCH (12:00)
--- NOTE | 2018-01-14 12:55 | P.DS ---
Providers Date of admission: 01/14/18 00:36 Expected date of discharge: 01/14/18 Attending physician: Roxanna oHbbs Primary care physician: Rico Tango - Discharge Diagnosis(es) (1) Alcohol use disorder Current Visit: Yes Status: Acute (2) Appendicitis Current Visit: Yes Status: Acute (3) Fatty liver, alcoholic Current Visit: Yes Status: Acute Hospital Course: The patient is a 37-year-old male was admitted secondary to acute appendicitis. Post procedure, he was tolerating diet. Pain was controlled. Intraoperative findings including fatty liver disease secondary to moderate alcohol use was reviewed. Patient's self-reported drinking at least 12 beers daily. is at bedside. Patient may not return to work until cleared by surgeon. Anticipated time of from work of 4 weeks reviewed. Pertinent Studies: CT demonstrating acute appendicitis Procedures: Laparoscopic appendectomy Patient Condition at Discharge: Stable Plan - Discharge Summary Discharge Rx Participant: No New Discharge Prescriptions: New Ibuprofen [Motrin] 600 mg PO Q8HR PRN #30 tab PRN Reason: Pain Tamsulosin [Flomax] 0.4 mg PO DAILY #5 cap Discharge Medication List Ibuprofen [Motrin] 600 mg PO Q8HR PRN #30 tab 01/14/18 [Rx] Tamsulosin [Flomax] 0.4 mg PO DAILY #5 cap 01/14/18 [Rx] Follow up Appointment(s)/Referral(s): Rico Cruz MD [Primary Care Provider] - 1-2 days Roxanna Hobbs MD [STAFF PHYSICIAN] - 01/16/18 (Please call to confirm time. Office closed at time of discharge. ) Patient Instructions/Handouts: Laparoscopic Appendectomy (DC) Activity/Diet/Wound Care/Special Instructions: No lifting over 4 pounds in 4 weeks. May shower. No bath tub soaks. May not return to work for at least 4 weeks until February 12 Discharge Disposition: HOME SELF-CARE
--- NOTE | 2018-01-14 12:56 | P.PN ---
Progress Note - Text Progress Note Date: 01/14/18 To Whom It May Concern, Damien Serna is under my surgical care. He had recent surgical procedure , 01/14/18. He may not return to work for at least 4 weeks. Anticipated return to work February 12. Regards, Roxanna Hobbs MD
[2018-01-14 13:19] VITALS: BP 118/69; PULSE 86
== END 2018-01-14 14:44 | disposition home or self-care (01) ==
LOC: EC 21:13 → 5MS5E 01-14 00:36
PROVIDERS: ADMIT Surgery Plastic and Reconstructive Surgery; ATTEND Surgery Plastic and Reconstructive Surgery
DX: K35.80 Unspecified acute appendicitis (principal); F10.10 Alcohol abuse, uncomplicated; K70.0 Alcoholic fatty liver; Z87.891 Personal history of nicotine dependence; Z80.9 Family history of malignant neoplasm, unspecified
CPT/HCPCS: 44970; 99285 ×2; 96375 ×5; 96361 ×3; 96376 ×3; 96365 ×2; 96366; 36415; 88304; 80053; 82150; 83605; 83690; 85025; 81003; 87040; 74177; G0378; J2250; J1200; J1644; J2710; J2405 ×2; J2001; J3010; J1885; J2270 ×2; J1170; J2543; J0690; J1100; J0330; J2704; Q9967

== ENCOUNTER 2018-05-28 16:55 | Emergency (ER) | payer BC, OTHER ==
[2018-05-28 17:06] VITALS: BP 135/92; PULSE 90; RESP 20; TEMP 97.6
[2018-05-28] MEDS ORDERED: PROPARACAINE 0.5% OPHTH DROPS 15 ML BTL LEFT EYE STA (17:37)
--- NOTE | 2018-05-28 17:53 | ED ---
Eye Problem HPI - General Chief complaint: Eye Problems Stated complaint: [facility] - POSS WELDERS FLASH RT EYE Time Seen by Provider: 05/28/18 17:29 Source: patient Mode of arrival: ambulatory Limitations: no limitations - History of Present Illness Initial comments: 37-year-old male patient presents to the emergency department today for evaluation of discomfort and redness to the right eye. Patient states that he started to have irritation last evening after work yesterday. 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 Patient states he was wearing a welders mask. Patient states that he started to have a irritation to the eye last night and has worsened throughout the day today. Patient states he has been having clear tearing to the eye. States that the has some mild blurred vision. He denies any headache, dizziness, weakness, fever, or chills with this. Denies any pain with movement of the eye. Denies any loss of vision. Last tetanus vaccine was given within 5 years. - Related Data Home Medications Medication Instructions Recorded Confirmed No Known Home Medications 01/14/18 01/14/18 Allergies Allergy/AdvReac Type Severity Reaction Status Date / Time No Known Allergies Allergy Verified 05/28/18 17:06 Review of Systems ROS Statement: Those systems with pertinent positive or pertinent negative responses have been documented in the HPI. ROS Other: All systems not noted in ROS Statement are negative. Past Medical History Past Medical History: No Reported History Additional Past Medical History / Comment(s): has knee brace History of Any Multi-Drug Resistant Organisms: None Reported Past Surgical History: Appendectomy, Back Surgery, Orthopedic Surgery Additional Past Surgical History / Comment(s): left knee arthroscopy, ACL left knee Past Anesthesia/Blood Transfusion Reactions: No Reported Reaction Past Psychological History: No Psychological Hx Reported Smoking Status: Current every day smoker Past Alcohol Use History: Daily Past Drug Use History: None Reported - Past Family History Mother Family Medical History: Cancer General Exam Limitations: no limitations General appearance: alert, in no apparent distress, other (This is a well- developed, well-nourished adult male patient in no acute distress. Vital signs upon presentation are temperature 97.6F, pulse 90, respirations 20, blood pressure 135/92, pulse ox 99% on room air.) Eye exam: Present: PERRL, EOMI, conjunctival injection (Right), other ( Fluorescein stain with Wood's lamp examination was performed to the right eye, there was presence of metallic foreign body noted to the cornea just left of the pupil at 3:00. Limited funduscopic examination was performed with ophthalmoscope, no evidence of retinal injury.). Absent: normal appearance, scleral icterus, periorbital swelling Respiratory exam: Present: normal lung sounds bilaterally. Absent: respiratory distress, wheezes, rales, rhonchi, stridor Cardiovascular Exam: Present: regular rate, normal rhythm, normal heart sounds. Absent: systolic murmur, diastolic murmur, rubs, gallop, clicks GI/Abdominal exam: Present: soft, normal bowel sounds. Absent: distended, tenderness, guarding, rebound, rigid Neurological exam: Present: alert, oriented X3, CN II-XII intact Psychiatric exam: Present: normal affect, normal mood Skin exam: Present: warm, dry, intact, normal color. Absent: rash Course Vital Signs 05/28/18 17:04 Temperature 97.6 F Pulse Rate 90 Respiratory 20 Rate Blood Pressure 135/92 O2 Sat by Pulse 99 Oximetry Medical Decision Making - Medical Decision Making 37-year-old male patient presented to the emergency department today for evaluation of irritation in redness to the right eye. Physical examination was performed, Wood's lamp examination with fluorescein stain was performed and did show evidence of metallic foreign body to the cornea. I did have Harish Avilez PA-c assist with removal of the foreign body using the Amador brush and slit lamp. We did have successful removal. Patient was given tobramycin ointment to use 4 times daily. He is instructed to follow-up with marketing technology specialist for recheck in 1-2 days. He is instructed to apply cool compresses to the eye. Return parameters were discussed in detail. He verbalizes understanding and agreed with this plan. Disposition Clinical Impression: Foreign body of right eye Disposition: HOME SELF-CARE Condition: Good Instructions: Eye Foreign Body (ED) Additional Instructions: Apply tobramycin ointment to the right eye, 1 cm ribbon to the lower eyelid 4 times daily while awake. Follow-up with ophthalmology for recheck on Monday. Return immediately for any new, worsening, or concerning symptoms. Is patient prescribed a controlled substance at d/c from ED?: No Referrals: Rico Cruz MD [Primary Care Provider] - 1-2 days Jayden Craig MD [STAFF PHYSICIAN] - 1-2 days Time of Disposition: 18:46
[2018-05-28] MEDS ORDERED: TOBRAMYCIN 0.3% OPHTH OINT 3.5 GM TUBE RIGHT EYE STA (18:44)
== END 2018-05-28 19:01 | disposition home or self-care (01) ==
LOC: EC 16:55
DX: T15.01XA Foreign body in cornea, right eye, initial encounter (principal); F17.200 Nicotine dependence, unspecified, uncomplicated; W89.0XXA Exposure to welding light (arc), initial encounter; Y93.89 Activity, other specified; Y92.69 Other specified industrial and construction area as the place of occurrence of the external cause; Y99.0 Civilian activity done for income or pay
CPT/HCPCS: 65222; 99282

== ENCOUNTER → 2018-06-19 | Outpatient (CLI) | payer BC ==
--- NOTE | 2018-06-19 10:53 | USB ---
Reason for exam: clinical finding. History: Family history of breast cancer in mother at age 41. Indicated problem(s): palpable abnormality and pain in the right breast. Physical Findings: Nurse Summary: 1cm nodule moves (nurse dw). US Breast RT Right complete breast ultrasound includes all four quadrants, the retroareolar region and axilla. Finding demonstrates no cystic or solid lesion seen. These results were verbally communicated with the patient and result sheet given to the patient on 06/19/18. ASSESSMENT: Negative, BI-RAD 1 RECOMMENDATION: Clinical management of the right breast. Manage patient on a clinical basis.
== END | disposition home or self-care (01) ==
LOC: RADUSWWP 09:53
PROVIDERS: ATTEND Family Medicine
DX: N63.0 Unspecified lump in unspecified breast (principal)

== ENCOUNTER → 2023-06-16 | Outpatient (CLI) | payer BC ==
--- NOTE | 2023-06-17 11:11 | MR ---
EXAMINATION TYPE: MR lumbar spine wo con DATE OF EXAM: 06/16/2023 4:20 PM CLINICAL INDICATION:Male, 42 years old with history of M54.50 LOW BACK PAIN; PHH, Low back pain that radiates down right leg. COMPARISON: None TECHNIQUE: Multi planar, multi sequence imaging was performed utilizing: T1-weighted, T2-weighted, a nd turbo inversion recovery imaging of the lumbar spine. IV Contrast: cc . (None if empty) FINDINGS: Alignment: The lumbar vertebral bodies have preserved heights and alignment. Cord: The conus medullaris and the distal spinal cord appear unremarkable with regards to their signa l intensity and morphology. Bones/Discs: Mild degeneration changes throughout the spine with osteophyte formation and facet joint arthropathy. There is some reactive bony edema along the adjoining endplates most pronounced at L4-L 5 anteriorly. Scattered disc space narrowing present at the L3-L4 and L4-L5 disc spaces. Intervertebr al disc signal is maintained. T12-L1: No evidence of significant spinal canal stenosis or neural foraminal stenosis. L1-L2: No evidence of significant spinal canal stenosis or neural foraminal stenosis. L2-L3: No evidence of significant spinal canal stenosis or neural foraminal stenosis. L3-L4: No evidence of significant spinal canal stenosis. Facet joint arthropathy mild bilateral neura l foraminal stenosis. L4-L5: Central disc protrusion without significant spinal canal stenosis. There is facet joint arthro cynthia with minimal neural foraminal stenosis. L5-S1: The disc is rounded posterior morphology without significant spinal canal stenosis. Facet join t arthropathy with mild to moderate bilateral neural foraminal stenosis. No significant spinal canal or neural foraminal stenosis in the remainder of the visualized levels. Other findings: None. IMPRESSION: 1. L4-L5 central disc protrusion without significant spinal canal stenosis. 2. Mild disc degeneration with associated osteoarthritic changes. No evidence for significant spinal canal or neural foraminal stenosis.
== END | disposition home or self-care (01) ==
LOC: RADMRIMAIN 15:25
PROVIDERS: ATTEND Orthopaedic Surgery
DX: M51.16 Intervertebral disc disorders with radiculopathy, lumbar region (principal); M47.26 Other spondylosis with radiculopathy, lumbar region
CPT/HCPCS: 72148

== ENCOUNTER → 2023-10-05 | Outpatient (CLI) | payer BC ==
--- NOTE | 2023-10-05 14:40 | P.PAINPG ---
PQRS Measure Charge Sheet Comment: HISTORY OF PRESENT ILLNESS: A 42 yr old male w at side as a referral from Dr Cordero presents today w severe and chronic LBP x 1 yr secondary to lumbar postlaminectomy syndrome for evaluation. Pt states pain level is provoked at 6 /10 in intensity, constant, localized in the lumbar spine, predominantly axial, achy in character w occasional shooting pain towards the R hip and RLE. Pain is provoked by over activity. Pain is alleviated by physician guided home exercise regimen daily since Jul 2023, injections (LESIs x2), heat, repositioning and rest. Oswestry axial pain score at 27. PMH: OA PSH: Lumbar Discectomy (2014), L Knee Arthroscopy, L ACL Repair, Appendectomy SH: Daily tobacco use, Daily ETOH use, No illicit drug use FH: Mo- CA All: See list Meds: See list REVIEW OF ORGAN SYSTEMS: CONSTITUTIONAL: No fevers or chills. No recent weight loss. NEUROLOGICAL: + numbness and tingling along the distal extremities. No seizure disorders or headaches. MUSCULOSKELETAL: + pain PSYCHIATRIC: Denies current depression or suicidal thoughts. Physical Examinations : Constitutional : Cooperative , not in acute distress . Neurologic : Cranial nerve II to XII intact. No focal neurological deficits. Psychiatric : alert & oriented x 3. Matching mood & appropriate affect. Judgment & insight intact. Musculoskeletal : Cervical Spine Motor strength in the deltoid and biceps: Normal right side. Normal Left side Motor strength biceps and the wrist extensors: Normal right side . Normal left side Motor strength in the triceps muscle: Normal right side. Normal left side Deep tendon reflexes: Normal at the biceps. Normal at Brachioradialis. Normal at triceps Vertebral body tenderness to deep palpation over Cervical facet loading test: positive bilaterally Spurling test: positive bilaterally Neck distraction test: positive bilaterally Jenny sign: positive bilaterally Lumbar spine +L4-L5 vertical incisional scar Motor strength lower extremities ,thigh and legs 5/5 Right side , 5/5 Left side Deep tendon reflexes : Normal Knee Jerk. Normal Ankle Jerk Vertebral body tenderness over L5 Peñaloza Test positive Lumbar facet Loading Test: positive Right / positive Left Range of motion of the lumbar spine Flexion 30 degrees, extension 10 degrees Straight Leg Raise test: Left/ Right positive at <40 degrees Kalpesh test: positive right / positive left. Severe tenderness over the Sacroiliac joint on the Right / Left sides Josseline test: positive bilaterally Seated flexion test: positive bilaterally. Sacral spine : Severe tenderness over the Sacroiliac joint: right side / left side Range of motion: Flexion of the lumbar spine <60 degrees Range of motion: Extension of the lumbar spine <20 degrees Gaenslen's Test positive Kalpesh test: positive right side / left side Thigh Thrust Test Sacral Thrust Test Imaging: MRI noncontrast of the lumbar spine from 06/16/23 reviewed Assessment/ Plan : Post laminectomy syndrome Recommendation of VERÓNICA L5-S1 #1. May need a series of injections for optimal pain relief. Risks, benefits of procedure discussed and patient verbalized understanding. Admits to anti- coagulant use or medical history of diabetes. Protocol for discontinuation/ continuation of medications joni procedure discussed. Minimal anesthesia provided, if clinically indicated, consisting of Versed and Fentanyl. All questions answered. I have spent greater than 30 minutes on patient care today. Dr Ness was available by phone for the evaluation of this patient. The time was used to review the medical records including relevant urine studies and Prescription history (MAPs), review of the available imaging, evaluation and examination of the patient, coordination of care with the medical staff and if applicable referring physicians, as well as creation of the medical record PQRS Narrative: Smoking Status Current every day smoker Home Medications: Ambulatory Orders No Known Home Medications 01/14/18 Controlled Substance Measures - Controlled Substance Measures Is patient prescribed a controlled substance at discharge?: No
[2023-10-05 14:53] VITALS: BP 130/86; PULSE 92; RESP 16; TEMP 98.5
== END ==
LOC: PNWHC3 13:44
PROVIDERS: ATTEND Specialist
DX: M96.1 Postlaminectomy syndrome, not elsewhere classified (principal); M54.16 Radiculopathy, lumbar region; M54.50 Low back pain, unspecified; M19.90 Unspecified osteoarthritis, unspecified site; F17.200 Nicotine dependence, unspecified, uncomplicated
CPT/HCPCS: 99211

== ENCOUNTER 2023-10-31 12:50 | Day surgery (SDC) | payer BC ==
[2023-10-26 10:01] VITALS: BMI 25.0
[2023-10-31] MEDS ORDERED: LACTATED RINGERS 1,000 ML IV SCH (13:30)
[2023-10-31] MEDS ORDERED: TRIAMCINOLONE ACETONIDE 40 MG/ML 1 ML VIAL ONE (13:33)
[2023-10-31] MEDS ORDERED: IOPAMIDOL M200 10 ML VIAL ONE (13:33)
[2023-10-31 13:41] VITALS: TEMP 98.1
[2023-10-31 14:17] VITALS: BP 126/77; PULSE 78; RESP 18
--- NOTE | 2023-10-31 16:41 | FL ---
EXAMINATION TYPE: FL guided pain mgmt statistic Intraoperative/procedural fluoroscopic services were provided. Total fluoroscopy time is 5.4 seconds with a total of 2 submitted images to PACS. Please se e the operative/procedural note for further details. DAP: [id number] mGym2
--- NOTE | 2023-12-11 09:47 | P.PCN ---
Date of Procedure: 10/31/23 Procedure(s) Performed: PREOPERATIVE DIAGNOSIS: 1-lumbar radiculopathy 2-Lumbar spondylosis with Facet arthropathy without myelopathy POSTOPERATIVE DIAGNOSIS: Lumbar radiculopathy 2-Lumbar spondylosis with Facet arthropathy without myelopathy PROCEDURE 1. Lumbar epidural steroid injection under fluoroscopic guidance at the L5-S1 level. 2. Lumbar epidurogram. ANESTHESIA: Local with 1% lidocaine 3 ml and IV sedation with Versed 2 mg ,and fentanyl 100 Mcg EBL: Minimal PROCEDURE INDICATION: The patient with low back pain and radiculitis symptoms unresponsive to conservative treatment. Fluoroscopy was used to optimize visualization of the needle placement and to maximize safety. PROCEDURE DESCRIPTION / TECHNIQUE: The patient was seen and identified in the preoperative area. Risks, benefits, complications including but not limited to infections ,bleeding ,allergic reaction to the medications ,nerve damage and not complete pain releife , and alternatives were discussed with the patient. The patient agreed to proceed with the procedure and signed the consent. IV was started, and vital signs were stable. Patient was taken to the OR and time out was completed. The patient was placed in the prone position on procedure table and a pillow was placed under the abdomen to reduce lumbar lordosis. The lumbosacral area was prepped and draped in the usual sterile fashion.ere closely monitored during the procedure. Conscious sedation was used during the procedure to decrease patients anxiety. Vital signs was monitered during the entire procedure. Using anterior-posterior fluoroscopy, the L5-S1 interlaminar space was identified and the skin over this site was marked and then infiltrated with 1% lidocaine subcutaneously. Subsequently, a 20-gauge Tuohy epidural needle was inserted and advanced toward the epidural space using the ``Loss of resistance technique and guided by AP and lateral fluoroscopy. The correct needle position in the epidural space was verified with the injection of 2 mL of the water soluble contrast dye Omnipaque 180 contrast and observing an excellent epidurogram with the epidural spread of the dye, after negative aspiration for blood and CSF and in the absence of paresthesias. Again after negative aspiration, a 6 ml mixture containing 20 mg of Dexamethasone and 4 ml of preservative free Normal Saline was injected and a washout of epidurogram was seen. Needle was withdrawn intact, skin was cleansed, and bandages were applied. COMPLICATIONS: None DISPOSITION / PLANS: The patient was placed in a supine position and transferred to the recovery area in a stable condition for observation. There was no evidence of lower extremity motor or sensory deficit after the procedure. Patient was discharged from the recovery room after meeting discharge criteria. Home discharge instructions were given to the patient by the staff. The patient was reexamined prior to discharge. The patient will schedule a follow up in the clinic in 2-4 weeks.
== END 2023-10-31 14:10 | disposition home or self-care (01) ==
LOC: ORPAIN 12:50
PROVIDERS: ATTEND Anesthesiology
DX: M47.26 Other spondylosis with radiculopathy, lumbar region (principal)
CPT/HCPCS: 62323; J3301; Q9966

== ENCOUNTER → 2023-11-16 | Outpatient (CLI) | payer BC ==
--- NOTE | 2023-11-16 14:04 | P.PAINPG ---
PQRS Measure Charge Sheet Comment: HISTORY OF PRESENT ILLNESS: A 42 yr old male w at side presents today w severe and chronic LBP x 1 yr secondary to lumbar post laminectomy syndrome for evaluation s/p VERÓNICA L5-S1 #1. Pt states he experienced 100% pain relief x 2 wks s/p procedure. Pt states pain level is provoked at 1 /10 in intensity, constant, localized in the lumbar spine, predominantly axial, achy in character w occasional shooting pain towards the R hip and RLE. Pain is provoked by over activity. Pain is alleviated by physician guided home exercise regimen daily since Jul 2023, injections, heat, repositioning and rest. Oswestry axial pain score at 21. Interventional procedures include LESIs x2, VERÓNICA L5-S1 (Oct 2023) Medications include DENIES REVIEW OF ORGAN SYSTEMS: CONSTITUTIONAL: No fevers or chills. No recent weight loss. NEUROLOGICAL: + numbness and tingling along the distal extremities. No seizure disorders or headaches. MUSCULOSKELETAL: + pain PSYCHIATRIC: Denies current depression or suicidal thoughts. Physical Examinations : Constitutional : Cooperative , not in acute distress . Neurologic : Cranial nerve II to XII intact. No focal neurological deficits. Psychiatric : alert & oriented x 3. Matching mood & appropriate affect. Judgment & insight intact. Musculoskeletal : Cervical Spine Motor strength in the deltoid and biceps: Normal right side. Normal Left side Motor strength biceps and the wrist extensors: Normal right side . Normal left side Motor strength in the triceps muscle: Normal right side. Normal left side Deep tendon reflexes: Normal at the biceps. Normal at Brachioradialis. Normal at triceps Vertebral body tenderness to deep palpation over Cervical facet loading test: positive bilaterally Spurling test: positive bilaterally Neck distraction test: positive bilaterally Jenny sign: positive bilaterally Lumbar spine +L4-L5 vertical incisional scar Motor strength lower extremities ,thigh and legs 5/5 Right side , 5/5 Left side Deep tendon reflexes : Normal Knee Jerk. Normal Ankle Jerk Vertebral body tenderness over L5 Peñaloza Test positive Lumbar facet Loading Test: positive Right / positive Left Range of motion of the lumbar spine Flexion 30 degrees, extension 10 degrees Straight Leg Raise test: Left/ Right positive at <40 degrees Kalpesh test: positive right / positive left. Severe tenderness over the Sacroiliac joint on the Right / Left sides Gaenslen test: positive bilaterally Seated flexion test: positive bilaterally. 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 All questions answered. I have spent greater than 30 minutes on patient care today. Dr Ness was available by phone for the evaluation of this patient. The time was used to review the medical records including relevant urine studies and Prescription history (MAPs), review of the available imaging, evaluation and examination of the patient, coordination of care with the medical staff and if applicable referring physicians, as well as creation of the medical record PQRS Narrative: Smoking Status Current every day smoker Hx Alcohol Use (MH) Yes Home Medications: Ambulatory Orders Multivit-Mins/Iron/Folic/Lycop [Centrum Men's Tablet] 1 each PO DAILY 10/26/23 Naproxen [Naprosyn] 500 mg PO BID 30 Days #60 tablet 11/16/23 Controlled Substance Measures - Controlled Substance Measures Is patient prescribed a controlled substance at discharge?: No
[2023-11-16 14:22] VITALS: BP 130/68; PULSE 72; RESP 15; TEMP 98.4
== END ==
LOC: PNWHC3 13:38
PROVIDERS: ATTEND Specialist
DX: M96.1 Postlaminectomy syndrome, not elsewhere classified (principal); F17.200 Nicotine dependence, unspecified, uncomplicated; M47.816 Spondylosis without myelopathy or radiculopathy, lumbar region
CPT/HCPCS: 99211